=== PATIENT | male | born 2000 | race Caucasian/White ===

== ENCOUNTER 2023-03-26 13:34 | Emergency (ER) | payer MEDICAID, SELFPAY ==
[2023-03-26 13:35] VITALS: BP 152/87; PULSE 78; RESP 16; TEMP 36.6; O2SAT 98; BMI 21.3
--- NOTE | 2023-03-26 13:53 | CT_ITS ---
STUDY: CT FACIAL BONES WITHOUT CONTRAST REASON FOR EXAM: Male, 23 years old. Head and facial injury. RADIATION DOSAGE (If Supplied By Facility): CTDIvol = ( 29.38 ) mGy, DLP = ( 547.46 ) mGycm TECHNIQUE: The patient was scanned in a multi detector CT scanner. Sagittal and coronal images were reconstructed. Individualized dose optimization techniques were used for this CT. COMPARISON: None. FINDINGS: Normal soft tissue structures. Normal orbital chauhan and orbital contents. Normal nasal bones and anterior nasal spine. Normal facial bones. Comminuted fracture of the nasal bones. Minimal mucosal thickening at the base of the right and left maxillary sinuses. CT/Sinus/Facial Bone IMPRESSION: Comminuted fracture of the nasal bones. Electronically Signed: Payam North MD at 14:37 EDT ,
--- NOTE | 2023-03-26 13:53 | CT_ITS ---
STUDY: CT BRAIN WITHOUT CONTRAST REASON FOR EXAM: Male, 23 years old. Head and facial injury. Nasal abrasion. RADIATION DOSAGE (If Supplied By Facility): CTDIvol = ( 44.99 ) mGy, DLP = ( 762.36 ) mGycm TECHNIQUE: Transaxial CT imaging of the brain was performed without administration of intravenous contrast material. Individualized dose optimization techniques were used for this CT. COMPARISON: No relevant priors. FINDINGS: Normal soft tissue structures. Normal calvarium. Normal size ventricles and extra-axial spaces for the patient''s age. Normal white matter tracts of the cerebral hemispheres. Normal basal ganglia and thalami. Normal brainstem. Normal cerebellum. There is no intracranial hemorrhage. There are no findings of an acute ischemic infarction. Normal visualized paranasal sinuses. CT/Brain/Head without Contrast IMPRESSION: Normal unenhanced CT scan of the brain. Electronically Signed: Payam North MD at 14:34 EDT ,
--- NOTE | 2023-03-26 13:54 | EX.ED.GENINJ ---
HPI History of Present Illness Chief Complaint: Head Injury Detail of Chief Complaint: Head and facial injury Informant: patient Narrative Narrative: Patient presents to the emergency department after sustaining a head and facial injury while at work. Patient states that they were doing some tree work and there was a branch that was cut that fell about 30 feet and struck him top of the head and face. Branch was about 6 or 7 inches across. There was no loss of consciousness. Patient was wearing a hard hat and hit the hard hat first and then hit his face. Patient denies neck pain. He denies vision changes. Patient states that his nose bled. He is worried he may have fractured his nose. Patient unsure of his last tetanus shot. Tetanus Immunization: Unknown PFSH PFSH Medical History no medical history Allergy/AdvReac Type Severity Reaction Status Date / Time No Known Allergies Allergy Verified 03/26/23 13:42 Family History no significant family his Surgical History no surgical history Social History Smoking Status: Current every day smoker tobacco type: cigarettes ROS ROS ED Review of Systems ROS Unobtainable: other Constitutional Constitutional ED: Reports lethargy; Denies chills, fever(s), sweats or weight loss Eyes Eyes: Denies blurry vision, change in vision or diplopia ENT ENT ED: Reports other Details: Nasal injury with nasal pain and bleeding from nose ; Denies rhinorrhea or sore throat Cardiovascular Cardiovascular: Denies chest pain, orthopnea or racing heartbeat Respiratory/Chest Respiratory/Chest: Denies cough, dyspnea, dyspnea on exertion, orthopnea or sputum Gastrointestinal Gastrointestinal: Denies abdominal pain, diarrhea, nausea or vomiting Genitourinary Genitourinary ED: Denies dysuria, hematuria or urinary frequency Musculoskeletal Musculoskeletal: Denies arthralgias, back pain, myalgias or neck pain Integumentary Denies abscess, Abrasions or rash Neurologic Neurologic: Reports headache(s); Denies weakness Psychiatric Psychiatric: Denies anxiety, depression or suicidal thoughts Endocrine Endocrinology: Denies polydipsia, polyphagia or polyuria Hematologic/Lymphatic Hematologic/Lymphatic: Denies easy bleeding, easy bruising or lymphadenopathy Allergic/Immunologic Allergic/Immunologic ED: Denies mouth swelling, tongue swelling or urticaria EXAM Physical Exam Const Vital Signs: 03/26/23 13:35 03/26/23 13:47 Temperature 98 F Temperature Source Temporal Pulse Rate 78 Respiratory Rate 16 Respiratory Effort Normal Blood Pressure 152/87 H Blood Pressure Mean 108 Pulse Ox 98 Oxygen Delivery Method Room Air Room Air Positive well nourished and well developed General Appearance ED: well developed and NAD HEENT Reports TM's clear and moist mucous membranes HEENT Narrative: No hemotympanum, no septal hematoma on exam. Patient does have soft tissue swelling and obvious deformity to the nasal bridge. Patient has superficial abrasions but no large lacerations noted. Mild tenderness to the inferior medial orbital chauhan bilaterally. normocephalic; Negative for trauma or tenderness Tympanic Membrane ED: Yes TM's clear Eyes PERRL and EOMs intact bilaterally General Eye ED: Negative for pale conjunctiva or scleral icterus Neck no lymphadenopathy, supple and no JVD General: Negative for tenderness Chest Wall inspection of chest normal and palpation of chest normal Chest: Negative for tenderness Resp normal respiratory effort and clear to auscultation bilaterally Effort and Inspection: Negative for respiratory distress or pain with movement Auscultation: Negative for rhonchi, wheezes or diminished lung sounds Cardio regular rate, regular rhythm, S1 normal heart sound, S2 normal heart sound and no murmurs Peripheral Pulses: pulses 2+ throughout GI normal to inspection, nondistended, normoactive bowel sounds, soft to palpation, non-tender, non-distended and no masses Back/Spine no CVA tenderness and no thoracic nor lumbar tenderness Extremity normal to inspection General Extremety ED: Negative for edema General Extremity: Negative for edema Neuro oriented x3, CN's II-XII intact bilaterally, no sensory deficits noted and gait normal Sensorium / Orientation: awake, alert, oriented to person, oriented to place and oriented to time Motor Exam: strength 5/5 throughout and strength abnormal Psych mental status grossly normal Skin no rashes or lesions noted and no wounds MDM MDM MDM Narrative Medical decision making narrative: Patient presents with head and facial injuries after being struck by a branch. Patient does not want to file this under Workmen's Comp. Patient had CT scan of the brain without contrast that was unremarkable. He had a CT scan of the facial bones that showed comminuted nasal bone fractures. I discussed case with ENT on-call Dr. Valdes who can see patient in about a week. Advised using ice to the area and Motrin Tylenol for discomfort. Patient advised to follow-up with ENT as instructed. Patient did not want a thing for pain for home. He can take ibuprofen or Tylenol for discomfort. Discharge Plan Triage Chief Complaint: Head Injury ED Provider: Nnamdi Villeda Dx/Rx/DC Orders Clinical Impression: CHI (closed head injury), Fracture closed, nasal bone Instructions: ED Nose Fracture, with X-Ray, ED Head Injury (Adult) Primary Care Provider: Care Physician,No Primary Referrals: González Martinez MD [Med Staff - Active Staff] - 5-7 Days NOT,DEFINED [Non-Staff] - Disposition Disposition: Home, Self Care
[2023-03-26] MEDS: Diphth,Pertuss(Acell),Tet Vac 0.5 ML Vial IM (14:02)
== END 2023-03-26 15:33 | disposition home or self-care (01) ==
PROVIDERS: Emergency Provider Emergency Medicine; Visit Provider Emergency Medicine
DX: S02.2XXA Fracture of nasal bones, initial encounter for closed fracture (principal); F17.210 Nicotine dependence, cigarettes, uncomplicated; S09.90XA Unspecified injury of head, initial encounter; W22.8XXA Striking against or struck by other objects, initial encounter; Y93.89 Activity, other specified; Y92.89 Other specified places as the place of occurrence of the external cause
CPT/HCPCS: 70450; 70486; 90715; 96372; 99282